=== PATIENT | male | born 1960 | race African-American/Black ===

== ENCOUNTER 2024-04-29 11:21 | Inpatient (IN) | payer MEDICARE, MEDICAID, SELFPAY ==
--- NOTE | ~2024-04-29 | CT_ITS ---
EXAMINATION: CT abdomen pelvis w con DATE: 04/29/2024 18:21 INDICATION: vomiting TECHNIQUE: Computed tomography (CT) of the abdomen and pelvis was performed with 100 mL Omnipaque-350 intravenous contrast. Automated exposure control and iterative reconstruction technique were employe d. The dose-length product was 394.66 mGy-cm. COMPARISON: None. FINDINGS: Exam limited by motion artifact and beam hardening from arm down positioning. Lower thorax: Mild cardiomegaly. Small bilateral pleural fluid collections. Mild septal thickening. D ependent atelectasis. Liver: Normal. Biliary/Gallbladder: Gallbladder is normal. No bile duct dilation. Pancreas: No mass or duct dilation. Spleen: Normal. Adrenals:No mass. Kidneys: No suspicious mass, obstructing stone, or hydronephrosis. GI tract: Mild distal esophageal and gastric wall edema. Mild gastric distention. Wall edema of the f irst portion of the duodenum. The second portion of the duodenum is dilated to 5.4 cm, with mucosal h yperemia. No large bowel dilation. Appendix is not confidently visualized. Mesentery/Peritoneum: Small volume ascites. No mass or free air. Retroperitoneum: No mass. Pelvis: Distended urinary bladder with mild wall thickening. Multiple ureteroceles. Marked prostatome shonna. Soft Tissues: Moderate body wall edema. Bones: No acute osseous finding. IMPRESSION: Small bilateral pleural effusions. Mild esophagitis/gastritis. Marked dilation of the second portion of the duodenum and mild gastric distention, presumably related to ileus from duodenitis. No obstructing mass or CT evidence of SMA syndrome. Mild ascites. Bladder wall thickening, may be secondary to chronic outlet obstruction or cystitis. Correlate with u rinalysis. Moderate body wall edema. Reviewed, dictated and finalized at location K. [place] [employer] SUPERVISOR IMPRESSION: Small bilateral pleural effusions. Mild esophagitis/gastritis. Marked dilation of the second portion of the duodenum and mild gastric distenti on, presumably related to ileus from duodenitis. No obstructing mass or CT evid ence of SMA syndrome. Mild ascites. Bladder wall thickening, may be secondary to chronic outlet obstruction or cyst itis. Correlate with urinalysis. Moderate body wall edema.
--- NOTE | ~2024-04-29 | CT_ITS ---
EXAMINATION: CT brain wo con DATE: 04/29/2024 18:21 INDICATION: unable to walk . TECHNIQUE: Computed tomography (CT) of the head was performed without intravenous contrast. The mA wa s adjusted according to patient size. Iterative reconstruction technique was employed. The dose-lengt h product was 681.00 mGy-cm. COMPARISON: None. FINDINGS: No acute intracranial hemorrhage or extra-axial fluid collection. No hydrocephalus, mass, or herniation. No acute ischemic infarct. Unremarkable dural venous sinus attenuation. No acute osseous abnormality. Small left maxillary air-fluid level, mild right maxillary mucosal thickening, the remaining aerated spaces are clear. Mild atrophy and chronic white matter change. Atherosclerotic intracranial calcification. IMPRESSION: No acute intracranial process. Reviewed, dictated and finalized at location K. ANICAL DEVELOPMENT ENGINEER
--- NOTE | ~2024-04-29 | XR_ITS ---
EXAMINATION: XR chest 1V portable DATE: 04/29/2024 13:43 INDICATION: Weakness TECHNIQUE: frontal view of the chest was obtained. COMPARISON: None FINDINGS: Mild elevation of the left hemidiaphragm. Mild right apical pleural-parenchymal scarring. No other ai rspace opacities, pulmonary edema, pleural effusion or pneumothorax. Cardiomediastinal silhouette is within normal limits for AP technique. IMPRESSION: 1. Mild elevation the left hemidiaphragm and mild right apical pleural-parenchymal scarring. Reviewed, dictated and finalized at location B. OR MAKER IMPRESSION: 1. Mild elevation the left hemidiaphragm and mild right apical pleural-parenchy mal scarring.
[2024-04-29 11:29] VITALS: BP 127/77; PULSE 79; RESP 16; TEMP 36.6; O2SAT 100
[2024-04-29 12:21] VITALS: BP 133/68; PULSE 58; RESP 16; TEMP 37.3; O2SAT 100
--- NOTE | 2024-04-29 12:50 | ED_ITS ---
HPI - Weakness General Chief complaint: Weakness Stated complaint: weakness Time Seen by Provider: 04/29/24 12:13 Source: EMS Mode of arrival: EMS History of Present Illness HPI Narrative: 63 years old male came to by ambulance from home patient's brother is telling me that patient was admitted to [facility] few days ago for urinary tract infection and was discharged 48 hours ago. On admission patient was able to walk at the time of discharge was not able to walk. Also been having nausea and frequent vomiting which been going for few days. Patient Baseline is awake and oriented to his name and age only otherwise disoriented. patient is brother and his sister saqib is telling me that patient used to walk bending forward because of back and neck problems and was told there is a possibility of neck surgery Review of Systems 2 Review of Systems: All systems reviewed & are unremarkable except as noted in HPI and below ROS unobtainable: Yes unobtainable due to mental status Exam 2 Narrative: General appearance: Well-developed, well-nourished, does not look in pain or distress patient looks mentally challenged, Skin: Normal color Head: Normocephalic, nontraumatic Eyes: Clear conjunctiva ENT: Oropharynx normal, ears normal, nose normal Neck: Supple, nontender Chest and respiratory: Airway patent, no respiratory distress, no accessory muscle use Heart: Regular rate/rhythm Abdomen: Soft, nontender, no organomegaly, quiet bowel sounds Vascular: Normal peripheral pulses, normal capillary refill. Musculoskeletal: deformity of the right upper extremity, dropped wrist and weakness of the hand muscles, chronic, generalized stiffness upper and lower extremities and trunk, scoliosis, stiffness and tilted neck to the left Neurologic: Alert and oriented his name and age only Course Vital Signs Vital signs: Vital Signs Temperature 36.6 C 04/29/24 11:29 Pulse Rate 79 04/29/24 11:29 Respiratory Rate 16 04/29/24 11:29 Blood Pressure 127/77 04/29/24 11:29 Pulse Oximetry 100 04/29/24 11:29 Oxygen Delivery Room Air 04/29/24 11:29 Temperature 36.6 C 04/29/24 17:54 Pulse Rate 90 04/29/24 17:54 Respiratory Rate 20 04/29/24 17:54 Blood Pressure 122/88 04/29/24 17:54 Pulse Oximetry 99 04/29/24 17:54 Oxygen Delivery Room Air 12/26/24 11:29 MDM - Weakness Lab Data 04/29/24 13:00 04/29/24 13:00 Labs: Lab Results 04/29/24 04/29/24 04/29/24 Range/Units 11:38 13:00 13:13 WBC 5.4 (4.5-10.0) K/mm3 RBC 4.06 L (4.6-6.20) M/mm3 Hgb 11.5 L (14.0-18.0) g/dL Hct 34.9 L (42.0-52.0) % MCV 86.0 (80-100) fl MCH 28.3 (26-34) pg MCHC 33.0 (32-36) g/dl RDW 13.5 (11.5-14.5) % Plt Count 150 (150-375) k/mm3 MPV 11.2 H (7.4-10.4) fl Immature Gran % (Auto) 0.7 H (0-0.5) % Neut % (Auto) 71.9 (45.5-73.1) % Lymph % (Auto) 15.8 L (18.3-44.2) % [place] % (Auto) 6.8 (2.6-8.5) % Eos % (Auto) 4.6 H (0-4.4) % Baso % (Auto) 0.2 (0.2-1.2) % Lymph # (Auto) 0.86 L (0.9-3.2) K/mm3 [place] # (Auto) 0.4 (0.1-0.6) K/mm3 Eos # (Auto) 0.3 (0-0.3) K/mm3 Baso # (Auto) 0.0 (0.0-0.1) K/mm3 Abs Immat Gran (auto) 0.04 H (0.00-0.031) K/mm3 Absolute Neuts (auto) 3.9 (1.3-6.7) K/mm3 Absolute Nucleated RBC 0.000 (0.0-0.012) K/mm3 Nucleated RBC % 0.0 (0.0-0.2) % Platelet Estimate Adequate (Adequate) Anisocytosis 1+ Neymar Cells 3+ Schistocytes None seen PT 18.7 H (11.1-14.7) Seconds INR 1.5 APTT 39.4 H (22.3-36.8) Seconds Sodium 136 L (137-145) mmol/L Potassium 3.6 (3.4-5.0) mmol/L Chloride 108 H (98-107) mmol/L Carbon Dioxide 26 (22-30) mmol/L Anion Gap 2 L (4-12) mmol/L BUN 15 (9-20) mg/dL Creatinine 1.00 (0.7-1.3) mg/dL Estim Creat Clear Calc 64 ml/min Estimated GFR > 60 (59 - ) Glucose 103 (65-110) mg/dL POC Capillary Glucose 102 (65-105) mg/dl Lactic Acid 1.0 (0.7-2.0) mmol/L Calcium 8.0 L (8.4-10.2) mg/dL Total Bilirubin 0.5 (0.2-1.3) mg/dL AST 33 (17-59) U/L ALT 38 (6-50) U/L Alkaline Phosphatase 58 (38-126) U/L Troponin I < 0.012 (0.000-0.034) ng/mL C-Reactive Protein 4.0 H (<1.0) mg/dL Total Protein 6.0 L (6.3-8.2) g/dL Albumin 2.9 L (3.5-5.1) g/dL Urine Color (Yellow) Urine Appearance (Clear) Urine pH (5.0-9.0) Ur Specific [place] (1.001-1.035) Urine Protein (Negative) mg/dL Urine Glucose (UA) (Negative) mg/dL Urine Ketones (Negative) mg/dL Ur Blood (Man) (Negative) Urine Nitrate (Negative) Urine Bilirubin (Negative) Urine Urobilinogen (<2.0) mg/dL Add Ur Microanalysis Leukocyte Esterase Rfl (Negative) DOROTHY/UL Urine RBC (0-2) /hpf Urine WBC (0-3) /hpf Ur Squamous Epith Cells (Few) /hpf Urine Bacteria /hpf Urine Casts Influenza A (RT-PCR) Negative (Negative) Influenza B (RT-PCR) Negative (Negative) RSV (RT-PCR) Negative (Negative) SARS-CoV-2 RNA (RT-PCR) Negative (Negative) 12/26/24 Range/Units 14:52 WBC (4.5-10.0) K/mm3 RBC (4.6-6.20) M/mm3 Hgb (14.0-18.0) g/dL Hct (42.0-52.0) % MCV (80-100) fl MCH (26-34) pg MCHC (32-36) g/dl RDW (11.5-14.5) % Plt Count (150-375) k/mm3 MPV (7.4-10.4) fl Immature Gran % (Auto) (0-0.5) % Neut % (Auto) (45.5-73.1) % Lymph % (Auto) (18.3-44.2) % [place] % (Auto) (2.6-8.5) % Eos % (Auto) (0-4.4) % Baso % (Auto) (0.2-1.2) % Lymph # (Auto) (0.9-3.2) K/mm3 [place] # (Auto) (0.1-0.6) K/mm3 Eos # (Auto) (0-0.3) K/mm3 Baso # (Auto) (0.0-0.1) K/mm3 Abs Immat Gran (auto) (0.00-0.031) K/mm3 Absolute Neuts (auto) (1.3-6.7) K/mm3 Absolute Nucleated RBC (0.0-0.012) K/mm3 Nucleated RBC % (0.0-0.2) % Platelet Estimate (Adequate) Anisocytosis Neymar Cells Schistocytes PT (11.1-14.7) Seconds INR APTT (22.3-36.8) Seconds Sodium (137-145) mmol/L Potassium (3.4-5.0) mmol/L Chloride (98-107) mmol/L Carbon Dioxide (22-30) mmol/L Anion Gap (4-12) mmol/L BUN (9-20) mg/dL Creatinine (0.7-1.3) mg/dL Estim Creat Clear Calc ml/min Estimated GFR (59 - ) Glucose (65-110) mg/dL POC Capillary Glucose (65-105) mg/dl Lactic Acid (0.7-2.0) mmol/L Calcium (8.4-10.2) mg/dL Total Bilirubin (0.2-1.3) mg/dL AST (17-59) U/L ALT (6-50) U/L Alkaline Phosphatase (38-126) U/L Troponin I (0.000-0.034) ng/mL C-Reactive Protein (<1.0) mg/dL Total Protein (6.3-8.2) g/dL Albumin (3.5-5.1) g/dL Urine Color Yellow (Yellow) Urine Appearance Clear (Clear) Urine pH 6.5 (5.0-9.0) Ur Specific [place] 1.020 (1.001-1.035) Urine Protein Trace (Negative) mg/dL Urine Glucose (UA) Negative (Negative) mg/dL Urine Ketones Negative (Negative) mg/dL Ur Blood (Man) 2+ H (Negative) Urine Nitrate Negative (Negative) Urine Bilirubin Negative (Negative) Urine Urobilinogen 1.0 (<2.0) mg/dL Add Ur Microanalysis Reviewed Leukocyte Esterase Rfl 1+ H (Negative) DOROTHY/UL Urine RBC 51-100 H (0-2) /hpf Urine WBC 0-5 (0-3) /hpf Ur Squamous Epith Cells None seen (Few) /hpf Urine Bacteria None seen /hpf Urine Casts 0-2 Influenza A (RT-PCR) (Negative) Influenza B (RT-PCR) (Negative) RSV (RT-PCR) (Negative) SARS-CoV-2 RNA (RT-PCR) (Negative) Imaging Data Radiologist's impression: Impressions Chest X-Ray 04/29/24 13:44 IMPRESSION: 1. Mild elevation the left hemidiaphragm and mild right apical pleural- parenchymal scarring. Critical Care Time Critical Care Time Critical Care Time: No Discharge Plan Discharge Patient Language: Greenlandic Follow-up/Referrals: UNKNOWN,DOCTOR [Primary Care Provider] -
--- NOTE | 2024-04-29 12:50 | ECG_ITS ---
Test Date: 2024-04-29 13:14:29 Measurements Intervals [place] Rate: 60 P: 28 NV: 130 QRS: -16 QRSD: 90 T: 31 QT: 416 QTc: 416 Interpretive Statements SINUS RHYTHM POOR R-WAVE PROGRESSION ABNORMAL ECG No previous ECG available for comparison Electronically Signed On 04-30-2024 16:50:50 LOADER HELPER by Ilya Ochoa M.D.
[2024-04-29 13:15] LABS: Basophils Percent Auto 0.2 % (0.2-1.2); Eosinophils Absolute Auto 0.3 K/mm3 (0-0.3); Eosinophils Percent Auto 4.6 % (0-4.4); Hematocrit 34.9 % (42.0-52.0); Hemoglobin 11.5 g/dL (14.0-18.0); Immature Granulocyte Absolute 0.04 K/mm3 (0.00-0.031); Immature Granulocyte Percent A 0.7 % (0-0.5); Lymphocytes Absolute Auto 0.86 K/mm3 (0.9-3.2); Lymphocytes Percent Auto 15.8 % (18.3-44.2); Mean Corpuscular Hemoglobin 28.3 pg (26-34); Mean Platelet Volume 11.2 fl (7.4-10.4); Monocytes Absolute Auto 0.4 K/mm3 (0.1-0.6); Monocytes Percent Auto 6.8 % (2.6-8.5); Neutrophils Absolute Auto 3.9 K/mm3 (1.3-6.7); Neutrophils Percent Auto 71.9 % (45.5-73.1); Platelet Count Result 150 k/mm3 (150-375); Red Blood Count 4.06 M/mm3 (4.6-6.20); Red Cell Distribution Width 13.5 % (11.5-14.5); White Blood Count 5.4 K/mm3 (4.5-10.0)
[2024-04-29 13:23] LABS: Alanine Aminotransferase 38 U/L (6-50); Albumin Level 2.9 g/dL (3.5-5.1); Alkaline Phosphatase 58 U/L (38-126); Anion Gap 2 mmol/L (4-12); Aspartate Amino Transferase 33 U/L (17-59); Bilirubin,Total 0.5 mg/dL (0.2-1.3); Blood Urea Nitrogen 15 mg/dL (9-20); Carbon Dioxide 26 mmol/L (22-30); Chloride 108 mmol/L (98-107); Estimated CRCL calculation 64 ml/min; Estimated Glomerular Filt Rate > 60; Glucose 103 mg/dL (65-110); Potassium 3.6 mmol/L (3.4-5.0); Sodium 136 mmol/L (137-145)
[2024-04-29 13:30] LABS: INR 1.5; Prothrombin Time 18.7 Seconds (11.1-14.7)
[2024-04-29 13:31] LABS: Partial Thromboplastin Time 39.4 Seconds (22.3-36.8); Troponin I < 0.012 ng/mL (0.000-0.034)
[2024-04-29 13:46] LABS: Influenza A QL RT-PCR Negative (Negative); Influenza B QL RT-PCR Negative (Negative); RSV RNA, RT-PCR Negative (Negative); SARS-CoV-2 RNA PCR Negative (Negative)
[2024-04-29 13:53] LABS: Platelet Estimate Adequate (Adequate)
[2024-04-29 13:54] LABS: Anisocytosis 1+; Burr Cells 3+; Schistocytes None Seen
[2024-04-29 14:24] LABS: Glucose Point of Care 102 mg/dl (65-105)
[2024-04-29 14:31] VITALS: BP 128/65; PULSE 66; RESP 13; TEMP 36.9; O2SAT 99
[2024-04-29 15:10] LABS: Add Urine Microscopic? YES; Appearance Urine Clear (Clear); Bacteria Urine None Seen /hpf; Bilirubin Urine Negative (Negative); Blood Urine 2+ (Negative); Color Urine Yellow (Yellow); Glucose Urine UA Negative (Negative); Ketones Urine Negative (Negative); Leukocyte Esterase Ur 1+ LEU/UL (Negative); Need Manual Microscopic Reviewed; Nitrate Urine Negative (Negative); Non Pathogenic Casts 0-2; Protein Urine Trace mg/dL (Negative); RBC Urine 51-100 /hpf (0-2); Squamous Epithelial Cell Urine None Seen /hpf (Few); WBC Urine 0-5 /hpf (0-3); pH Urine 6.5 (5.0-9.0)
[2024-04-29 17:54] VITALS: BP 122/88; PULSE 90; RESP 20; TEMP 36.6; O2SAT 99
[2024-04-29 19:47] VITALS: BP 130/73; PULSE 62; RESP 14; TEMP 36.6; O2SAT 100
--- NOTE | 2024-04-29 21:36 | PM.IMHP ---
H&P: HPI History of Present Illness Date/Time: 04/29/24 21:36 Chief Complaint: vomiting Narrative: Pt brought in by his brother for 3 days of vomiting Pt was recently discharged from [facility] on adis with UTI. Pt was taking oral abx at home was having some diarrhea and stomach upset. UA today is positive Pt has history of schizophrenia but his moo is stable as per his brother ct head is negative, cxr is nl ct abdo and pelvis shows -Small bilateral pleural effusions. Mild esophagitis/gastritis. Marked dilation of the second portion of the duodenum and mild gastric distention, presumably related to ileus from duodenitis. No obstructing mass or CT evidence of SMA syndrome. Mild ascites. Bladder wall thickening, may be secondary to chronic outlet obstruction or cystitis. Correlate with urinalysis. Moderate body wall edema. Review of Systems Review of Systems: Pt with severe vomiting some diarrhea all other 12 systems are negative apart from those in HPI Meds Home Medications and Allergies Allergies Allergy/AdvReac Type Severity Reaction Status Date / Time No Known Allergies Allergy Verified 04/29/24 21:37 Vital Signs Vital Signs - 24 hr 04/29/24 11:29 04/29/24 12:21 04/29/24 14:31 Temperature 36.6 C 37.3 C 36.9 C Pulse Rate 79 58 L 66 Respiratory Rate 16 16 13 Blood Pressure 127/77 133/68 128/65 Pulse Oximetry 100 100 99 Oxygen Delivery Room Air 04/29/24 17:54 04/29/24 19:47 Temperature 36.6 C 36.6 C Pulse Rate 90 62 Respiratory Rate 20 14 Blood Pressure 122/88 130/73 Pulse Oximetry 99 100 Oxygen Delivery Exam Const: General: in distress and other (tired weak dry appearing ) Nutritional Appearance: thin Orientation/consciousness: oriented to person Other: slow to answer questions HENMT: Head: normal to inspection Resp: Effort & Inspection: no respiratory distress Auscultation: no rhonchi and no wheezes Cardio: Rate: regular rate Rhythm: regular rhythm GI: Inspection: normal to inspection GI Palp: No abdominal tenderness, No Guarding due to palpation present (GI) and No Hepatomegaly present Auscultation: normal bowel sounds Neuro: General: oriented to person Psych: Other: euthymic mood and speech H&P: Results Labs Labs: Short CBC 04/29/24 Range/Units 13:00 WBC 5.4 (4.5-10.0) K/mm3 Hgb 11.5 L (14.0-18.0) g/dL Hct 34.9 L (42.0-52.0) % Plt Count 150 (150-375) k/mm3 BMP 04/29/24 13:00 Sodium 136 L Potassium 3.6 Chloride 108 H Carbon Dioxide 26 BUN 15 Creatinine 1.00 Glucose 103 Calcium 8.0 L Cardiac Enzymes 04/29/24 Range/Units 13:00 Troponin I < 0.012 (0.000-0.034) ng/mL Liver Function 04/29/24 Range/Units 13:00 Total Bilirubin 0.5 (0.2-1.3) mg/dL AST 33 (17-59) U/L ALT 38 (6-50) U/L Alkaline Phosphatase 58 (38-126) U/L Albumin 2.9 L (3.5-5.1) g/dL Urine 04/29/24 Range/Units 14:52 Urine Color Yellow (Yellow) Urine Appearance Clear (Clear) Urine pH 6.5 (5.0-9.0) Ur Specific [place] 1.020 (1.001-1.035) Urine Protein Trace (Negative) mg/dL Urine Glucose (UA) Negative (Negative) mg/dL Assessment and Plan Assessment and plan (1) UTI (urinary tract infection): Code(s): N39.0 - Urinary tract infection, site not specified Status: Acute Assessment and Plan: UA is positive await UC and bc order iv rocephin and fluids (2) Dehydration: Code(s): E86.0 - Dehydration Status: Acute Assessment and Plan: Secondary to intractable vomiting Add iv fluids watch bmp follow UC (3) Schizophrenia: Code(s): F20.9 - Schizophrenia, unspecified Status: Acute Assessment and Plan: euthymic mood pt currently not on any psych meds (4) Gastritis: Code(s): K29.70 - Gastritis, unspecified, without bleeding Status: Acute Assessment and Plan: Add iv protonix and iv zofran ct shows gastritis and esophagitis start clear diet advance as tolerated if pt having diarrhea can send for stool culture and cdiff testing Plan DVT prop: scd code: full code Hospitalist MIPS Advance Care Plan I have confirmed that the patient's Advanced Care Plan is present, code status is documented, or surrogate decision maker is listed in patient medical record.: Yes Medication Reconciliation The patient is not eligible for med reconciliation; the patient is in a emergent medical situation where delaying treatment would jeopardize the patients health.: Yes
[2024-04-29] MEDS: SODIUM CHLORIDE 0.9% IV 1,000 ML 70 ML IV CONT (22:01)
[2024-04-29 22:16] VITALS: BMI 20.2
[2024-04-29 22:17] VITALS: BP 134/62; PULSE 58; RESP 16; TEMP 36.9; O2SAT 99
--- NOTE | 2024-04-29 22:30 | ADMGEN ---
This patient, Ayanna Valdez, was admitted to Medical Room 347-. Patient/family oriented to hospital policies and general routines including ID bracelet, bed and alarms, visiting hours, pain management, procedures, bathroom and other care routines, personal items, smoking policy, room service/diet, and visiting hours. Information on how to activate the Rapid Response Team has been discussed. Patient/Family are encouraged to report perceived risks to care and to ask questions if they do not understand what they are told or what they should do.
[2024-04-30] MEDS: ONDANSETRON INJ 4 MG/2 ML VIAL IV PUSH (04:52)
[2024-04-30 05:06] VITALS: BP 150/67; PULSE 55; RESP 18; TEMP 36.6; O2SAT 98
[2024-04-30 07:05] LABS: Hematocrit 29.8 % (42.0-52.0); Hemoglobin 9.6 g/dL (14.0-18.0); Immature Platelet Fraction Pct 3.5 % (0.9-11.2); Mean Corpuscular HGB Conc 32.2 g/dl (32-36); Mean Corpuscular Hemoglobin 27.8 pg (26-34); Mean Corpuscular Volume 86.4 fl (80-100); Mean Platelet Volume 11.2 fl (7.4-10.4); Platelet Count Result 131 k/mm3 (150-375); Red Blood Count 3.45 M/mm3 (4.6-6.20); Red Cell Distribution Width 13.4 % (11.5-14.5); White Blood Count 6.3 K/mm3 (4.5-10.0)
[2024-04-30 07:13] LABS: Anion Gap 0 mmol/L (4-12); Blood Urea Nitrogen 12 mg/dL (9-20); Calcium 7.6 mg/dL (8.4-10.2); Carbon Dioxide 24 mmol/L (22-30); Chloride 109 mmol/L (98-107); Estimated CRCL calculation 68 ml/min; Estimated Glomerular Filt Rate > 60; Glucose 91 mg/dL (65-110); Potassium 3.6 mmol/L (3.4-5.0); Sodium 133 mmol/L (137-145)
[2024-04-30] MEDS: PANTOPRAZOLE SODIUM IV 40 MG VIAL IV PUSH (08:26)
[2024-04-30] MEDS: SODIUM CHLORIDE 0.9% IV 1,000 ML 70 ML IV CONT ×2 (12:29→20:13)
--- NOTE | 2024-04-30 12:36 | P.PNIM_ITS ---
Progress Note: A&P Assessment and Plan (1) UTI (urinary tract infection): Code(s): N39.0 - Urinary tract infection, site not specified Status: Acute Assessment and Plan: 04/30/24: - Urine culture pending. Labwork stable. Recent discharge with UTI from [facility], Have spoken to nursing and requested records. 04/29/24: UA is positive await UC and order iv rocephin and fluids (2) Dehydration: Code(s): E86.0 - Dehydration Status: Acute Assessment and Plan: 04/30/24: Improved labs, fluids at 70ml/hr to continue. 04/29/24: Secondary to intractable vomiting Add iv fluids watch bmp follow UC (3) Schizophrenia: Code(s): F20.9 - Schizophrenia, unspecified Status: Acute Assessment and Plan: 04/30/24: Stable mood, pleasant and conversant. Resumed home medications (benztropine, remeron, risperdal, sertraline). 04/29/24: euthymic mood pt currently not on any psych meds (4) Gastritis: Code(s): K29.70 - Gastritis, unspecified, without bleeding Status: Acute Assessment and Plan: 04/30/24: No abdominal pain, distention noted on imaging - one episode vomiting last night and none since. If vomiting resumes, plan to reimage. Cont. protonix, zofran. QT 416, if needing zofran frequently, remeasure and modify therapy. 04/29/24: Add iv protonix and iv zofran ct shows gastritis and esophagitis start clear diet advance as tolerated if pt having diarrhea can send for stool culture and cdiff testing (5) Hypertension: Code(s): I10 - Essential (primary) hypertension Status: Acute Assessment and Plan: 04/30/24: BP 150/67 this am, resuming norvasc, losartan, propranolol. Plan Ayanna Valdez is a 63 year old male presenting with 3 days of vomiting from home after recent discharge from [facility] with UTI. His urinalysis does suggest current infection and he is on ceftriaxone with pending culture. There is distention of the duodenum/stomach without specific findings of obstruction. He is tolerating liquid diet without abdominal pain on examination. Time Spent With Patient Time with patient: 25 - 35 minutes Subjective Date/time seen: 04/30/24 12:36 Interval history: Ayanna states he feels ok today. He denies any abdominal pain. He states has dysuria. Review of Systems Review of Systems: All systems reviewed & are unremarkable except as noted in HPI and below Exam Narrative: GENERAL APPEARANCE: Appears to be in no acute distress. HEAD: normocephalic atraumatic EYES: Vision grossly intact. ENT: Hearing grossly intact, no nasal discharge NECK: Neck supple, trachea midline. CARDIAC: Normal S1/S2. Rhythm is regular. No murmurs, rubs, or gallops. No cyanosis or pallor. Extremities are warm and well perfused. LUNGS: Clear to auscultation without rales, rhonchi, wheezing or diminished breath sounds. Respirations even and unlabored. ABDOMEN: BS positive across 4 quadrants. Mild tympany to percussion. Soft. No guarding or rebound. PERIPHERAL VASCULAR: Peripheral pulses palpable. Normal perfusion, cap refill <2 seconds. NEURO: Follows commands. PSYCH: Stable, no paranoia or delusional thinking. Objective Data Vital Signs Vital Signs: Vital Signs - 24 hr 04/29/24 14:31 04/29/24 17:54 04/29/24 19:47 Temperature 98.4 F 97.9 F 97.9 F Pulse Rate 66 90 62 Respiratory Rate 13 20 14 Blood Pressure 128/65 122/88 130/73 Pulse Oximetry 99 99 100 04/29/24 22:17 04/30/24 05:06 Temperature 98.5 F 98 F Pulse Rate 58 L 55 L Respiratory Rate 16 18 Blood Pressure 134/62 150/67 H Pulse Oximetry 99 98 Intake/Output Intake/Output: Intake & Output 04/27/24 04/28/24 04/29/24 04/30/24 23:59 23:59 23:59 23:59 Intake Total 1700 Output Total 500 Balance 1200 Meds/Results Medications: Active Medications Generic Name Dose Route Start Last Admin Trade Name Freq PRN Reason Stop Dose Admin Acetaminophen 650 mg 04/29/24 20:17 Acetaminophen 325 Mg Tablet PO Q4H PRN Mild Pain (1-3) or Fever Ceftriaxone Sodium 1 gm in 50 mls @ 100 mls/hr 04/29/24 21:00 04/29/24 22:01 Rocephin 1 Gm/Ns 50 Ml IVPB 100 mls/hr Q24H LORNA Administration Sodium Chloride 1,000 mls @ 70 mls/hr 04/29/24 21:50 04/30/24 12:29 Normal Saline Iv IV CONT 70 mls/hr .[id number] LORNA Administration Ondansetron HCl 4 mg 04/29/24 20:17 04/30/24 04:52 Ondansetron Inj 4 Mg/2 Ml Vial IV PUSH 4 mg Q4H PRN Administration Nausea Pantoprazole Sodium 40 mg 04/30/24 09:00 04/30/24 08:26 Pantoprazole Sodium Iv 40 Mg Vial IV PUSH 40 mg QAM LORNA Administration Radiology Results: ITS Impressions Chest X-Ray 04/29/24 13:44 IMPRESSION: 1. Mild elevation the left hemidiaphragm and mild right apical pleural- parenchymal scarring. Head CT 04/29/24 18:23 IMPRESSION: No acute intracranial process. Abdomen/Pelvis CT 04/29/24 18:25 IMPRESSION: Small bilateral pleural effusions. Mild esophagitis/gastritis. Marked dilation of the second portion of the duodenum and mild gastric distention, presumably related to ileus from duodenitis. No obstructing mass or CT evidence of SMA syndrome. Mild ascites. Bladder wall thickening, may be secondary to chronic outlet obstruction or cystitis. Correlate with urinalysis. Moderate body wall edema. Labs Labs: Laboratory Results - last 24 hr 04/29/24 04/29/24 04/29/24 11:38 13:00 13:13 WBC 5.4 RBC 4.06 L Hgb 11.5 L Hct 34.9 L MCV 86.0 MCH 28.3 MCHC 33.0 RDW 13.5 Plt Count 150 MPV 11.2 H Immature Gran % (Auto) 0.7 H Neut % (Auto) 71.9 Lymph % (Auto) 15.8 L [place] % (Auto) 6.8 Eos % (Auto) 4.6 H Baso % (Auto) 0.2 Lymph # (Auto) 0.86 L [place] # (Auto) 0.4 Eos # (Auto) 0.3 Baso # (Auto) 0.0 Abs Immat Gran (auto) 0.04 H Absolute Neuts (auto) 3.9 Absolute Nucleated RBC 0.000 Nucleated RBC % 0.0 Platelet Estimate Adequate % Immature Plt Fraction Anisocytosis 1+ [place] Cells 3+ Schistocytes None seen PT 18.7 H INR 1.5 APTT 39.4 H Sodium 136 L Potassium 3.6 Chloride 108 H Carbon Dioxide 26 Anion Gap 2 L BUN 15 Creatinine 1.00 Estim Creat Clear Calc 64 Estimated GFR > 60 Glucose 103 POC Capillary Glucose 102 Lactic Acid 1.0 Calcium 8.0 L Total Bilirubin 0.5 AST 33 ALT 38 Alkaline Phosphatase 58 Troponin I < 0.012 C-Reactive Protein 4.0 H Total Protein 6.0 L Albumin 2.9 L Urine Color Urine Appearance Urine pH Ur Specific [place] Urine Protein Urine Glucose (UA) Urine Ketones Ur Blood (Man) Urine Nitrate Urine Bilirubin Urine Urobilinogen Add Ur Microanalysis Leukocyte Esterase Rfl Urine RBC Urine WBC Ur Squamous Epith Cells Urine Bacteria Urine Casts Influenza A (RT-PCR) Negative Influenza B (RT-PCR) Negative RSV (RT-PCR) Negative SARS-CoV-2 RNA (RT-PCR) Negative 04/29/24 04/30/24 14:52 06:40 WBC 6.3 RBC 3.45 L Hgb 9.6 L Hct 29.8 L MCV 86.4 MCH 27.8 MCHC 32.2 RDW 13.4 Plt Count 131 L MPV 11.2 H Immature Gran % (Auto) Neut % (Auto) Lymph % (Auto) [place] % (Auto) Eos % (Auto) Baso % (Auto) Lymph # (Auto) [place] # (Auto) Eos # (Auto) Baso # (Auto) Abs Immat Gran (auto) Absolute Neuts (auto) Absolute Nucleated RBC Nucleated RBC % Platelet Estimate % Immature Plt Fraction 3.5 Anisocytosis [place] Cells Schistocytes PT INR APTT Sodium 133 L Potassium 3.6 Chloride 109 H Carbon Dioxide 24 Anion Gap 0 L BUN 12 Creatinine 0.90 Estim Creat Clear Calc 68 Estimated GFR > 60 Glucose 91 POC Capillary Glucose Lactic Acid Calcium 7.6 L Total Bilirubin AST ALT Alkaline Phosphatase Troponin I C-Reactive Protein Total Protein Albumin Urine Color Yellow Urine Appearance Clear Urine pH 6.5 Ur Specific [place] 1.020 Urine Protein Trace Urine Glucose (UA) Negative Urine Ketones Negative Ur Blood (Man) 2+ H Urine Nitrate Negative Urine Bilirubin Negative Urine Urobilinogen 1.0 Add Ur Microanalysis Reviewed Leukocyte Esterase Rfl 1+ H Urine RBC 51-100 H Urine WBC 0-5 Ur Squamous Epith Cells None seen Urine Bacteria None seen Urine Casts 0-2 Influenza A (RT-PCR) Influenza B (RT-PCR) RSV (RT-PCR) SARS-CoV-2 RNA (RT-PCR) Quality VTE Prophylaxis VTE prophylaxis: mechanical ordered and pharmacologic ordered (on xarelto) Hospitalist MIPS Advance Care Plan I have confirmed that the patient's Advanced Care Plan is present, code status is documented, or surrogate decision maker is listed in patient medical record.: Yes Medication Reconciliation I have utilized all available resources to obtain, update and review the patients current medications (includes all prescriptions, OTC, herbals, cannabis, and nutritional supplements).: Yes
[2024-04-30] MEDS: BACLOFEN 10 MG TABLET PO ×2 (13:23→20:12)
[2024-04-30] MEDS: LOSARTAN POTASSIUM 50 MG TABLET PO (13:23)
[2024-04-30] MEDS: SERTRALINE HCL 50 MG TABLET PO (13:23)
[2024-04-30] MEDS: amLODIPine BESYLATE 10 MG TABLET PO (13:23)
[2024-04-30] MEDS: LORATADINE 10 MG TABLET PO (13:26)
[2024-04-30 13:27] VITALS: PULSE 60
[2024-04-30] MEDS: PROPRANOLOL HCL 60 MG CAPSULE CR PO (13:27)
[2024-04-30 14:00] VITALS: BP 133/57; PULSE 62; RESP 18; TEMP 36.8; O2SAT 99
[2024-04-30] MEDS: RIVAROXABAN 20 MG TABLET PO (16:51)
[2024-04-30] MEDS: BENZTROPINE MESYLATE 1 MG TABLET PO (16:56)
[2024-04-30 19:46] VITALS: BP 120/65; PULSE 60; RESP 18; TEMP 36.5; O2SAT 100
[2024-04-30] MEDS: risperiDONE 1 MG TABLET 2 MG PO (20:12)
[2024-04-30] MEDS: MIRTAZAPINE 30 MG TABLET PO (20:12)
[2024-04-30] MEDS: traZODone HCL 50 MG TABLET PO (20:12)
[2024-05-01 05:45] VITALS: BP 149/63; PULSE 57; RESP 16; TEMP 36.6; O2SAT 97
[2024-05-01 05:56] LABS: Hemoglobin 10.7 g/dL (14.0-18.0); Mean Corpuscular HGB Conc 32.4 g/dl (32-36); Mean Corpuscular Volume 86.4 fl (80-100); Mean Platelet Volume 10.8 fl (7.4-10.4); Platelet Count Result 152 k/mm3 (150-375); Red Blood Count 3.82 M/mm3 (4.6-6.20); Red Cell Distribution Width 13.6 % (11.5-14.5); White Blood Count 6.6 K/mm3 (4.5-10.0)
[2024-05-01 06:07] LABS: Alanine Aminotransferase 27 U/L (6-50); Albumin Level 2.5 g/dL (3.5-5.1); Alkaline Phosphatase 50 U/L (38-126); Anion Gap -1 mmol/L (4-12); Aspartate Amino Transferase 22 U/L (17-59); Bilirubin,Total 0.4 mg/dL (0.2-1.3); Blood Urea Nitrogen 10 mg/dL (9-20); Calcium 7.6 mg/dL (8.4-10.2); Carbon Dioxide 25 mmol/L (22-30); Chloride 113 mmol/L (98-107); Estimated CRCL calculation 75 ml/min; Estimated Glomerular Filt Rate > 60; Glucose 86 mg/dL (65-110); Potassium 3.7 mmol/L (3.4-5.0); Sodium 137 mmol/L (137-145)
[2024-05-01 08:02] VITALS: O2SAT 98
[2024-05-01 09:01] VITALS: PULSE 57
[2024-05-01] MEDS: amLODIPine BESYLATE 10 MG TABLET PO (09:01)
[2024-05-01] MEDS: LOSARTAN POTASSIUM 50 MG TABLET PO (09:01)
[2024-05-01] MEDS: LORATADINE 10 MG TABLET PO (09:01)
[2024-05-01] MEDS: BACLOFEN 10 MG TABLET PO ×2 (09:01→20:23)
[2024-05-01] MEDS: PROPRANOLOL HCL 60 MG CAPSULE CR PO (09:01)
[2024-05-01] MEDS: SERTRALINE HCL 50 MG TABLET PO (09:01)
[2024-05-01] MEDS: PANTOPRAZOLE SODIUM IV 40 MG VIAL IV PUSH (09:02)
[2024-05-01] MEDS: BENZTROPINE MESYLATE 1 MG TABLET PO ×2 (09:08→17:37)
--- NOTE | 2024-05-01 10:13 | P.PNIM_ITS ---
Progress Note: A&P Assessment and Plan (1) Hypertension: Code(s): I10 - Essential (primary) hypertension Status: Acute (2) Gastritis: Code(s): K29.70 - Gastritis, unspecified, without bleeding Status: Acute (3) Schizophrenia: Code(s): F20.9 - Schizophrenia, unspecified Status: Acute (4) Dehydration: Code(s): E86.0 - Dehydration Status: Acute (5) UTI (urinary tract infection): Code(s): N39.0 - Urinary tract infection, site not specified Status: Acute Plan (1) UTI (urinary tract infection): Code(s): N39.0 - Urinary tract infection, site not specified Status: Acute Assessment and Plan: 05/01/24: UA is positive await UC and bc on iv rocephin and fluids Urine culture no growth Labwork stable. Recent discharge with UTI from [facility], requested records. (2) Dehydration: Code(s): E86.0 - Dehydration Status: Acute Assessment and Plan: Improved labs, fluids at 70ml/hr to continue. (3) Schizophrenia: Code(s): F20.9 - Schizophrenia, unspecified Status: Acute Assessment and Plan: 04/30/24: Stable mood, pleasant and conversant. Resumed home medications (benztropine, remeron, risperdal, sertraline). 04/29/24: euthymic mood pt currently not on any psych meds (4) Gastritis: Code(s): K29.70 - Gastritis, unspecified, without bleeding Status: Acute Assessment and Plan: 04/30/24: No abdominal pain, distention noted on imaging - one episode vomiting last night and none since. If vomiting resumes, plan to reimage. Cont. protonix, zofran. QT 416, if needing zofran frequently, remeasure and modify th erapy. 04/29/24: Add iv protonix and iv zofran ct shows gastritis and esophagitis start clear diet advance as tolerated if pt having diarrhea can send for stool culture and cdiff testing (5) Hypertension: Code(s): I10 - Essential (primary) hypertension Status: Acute Assessment and Plan: 04/30/24: BP 150/67 this am, resuming norvasc, losartan, propranolol. Plan Discharge patient tomorrow if patient appetite will continue improving and tolerates diet Subjective Date/time seen: 05/01/24 10:13 Interval history: Patient was sitting in a chair eating lunch, no obvious distress. Appetite is improving, Patient has general weakness, and he denies any abdominal pain. He states has dysuria. Exam Narrative: GENERAL APPEARANCE: Appears to be in no acute distress. HEAD: normocephalic atraumatic EYES: Vision grossly intact. ENT: Hearing grossly intact, no nasal discharge NECK: Neck supple, trachea midline. CARDIAC: Normal S1/S2. Rhythm is regular. No murmurs, rubs, or gallops. No cyanosis or pallor. Extremities are warm and well perfused. LUNGS: Clear to auscultation without rales, rhonchi, wheezing or diminished breath sounds. Respirations even and unlabored. ABDOMEN: BS positive across 4 quadrants. Mild tympany to percussion. Soft. No guarding or rebound. PERIPHERAL VASCULAR: Peripheral pulses palpable. Normal perfusion, cap refill <2 seconds. NEURO: Follows commands. PSYCH: Stable, no paranoia or delusional thinking. Objective Data Vital Signs Vital Signs: Vital Signs - 24 hr 04/30/24 13:27 04/30/24 14:00 04/30/24 19:46 Temperature 98.2 F 97.7 F Pulse Rate 60 62 60 Respiratory Rate 18 18 Blood Pressure 133/57 L 120/65 Pulse Oximetry 99 100 Oxygen Delivery Fraction of Inspired Oxygen 05/01/24 05:45 05/01/24 08:00 05/01/24 08:02 Temperature 97.8 F Pulse Rate 57 L Respiratory Rate 16 Blood Pressure 149/63 H Pulse Oximetry 97 98 Oxygen Delivery Room Air Room Air Fraction of Inspired Oxygen 21 05/01/24 09:01 Temperature Pulse Rate 57 L Respiratory Rate Blood Pressure Pulse Oximetry Oxygen Delivery Fraction of Inspired Oxygen Intake/Output Intake/Output: Intake & Output 04/28/24 04/29/24 04/30/24 05/01/24 23:59 23:59 23:59 23:59 Intake Total 50 3371.3 240 Output Total 1100 800 Balance 50 4071.3 -560 Meds/Results Medications: Active Medications Generic Name Dose Route Start Last Admin Trade Name Freq PRN Reason Stop Dose Admin Acetaminophen 650 mg 04/29/24 20:17 Acetaminophen 325 Mg Tablet PO Q4H PRN Mild Pain (1-3) or Fever Amlodipine Besylate 10 mg 04/30/24 12:45 05/01/24 09:01 Amlodipine Besylate 10 Mg Tablet PO 10 mg DAILY LORNA Administration Baclofen 10 mg 04/30/24 12:40 05/01/24 09:01 Baclofen 10 Mg Tablet PO 10 mg Q12HR LORNA Administration Benztropine Mesylate 1 mg 04/30/24 17:00 05/01/24 09:08 Benztropine Mesylate 1 Mg Tablet PO 1 mg BID LORNA Administration Ceftriaxone Sodium 1 gm in 50 mls @ 100 mls/hr 04/29/24 21:00 04/30/24 21:00 Rocephin 1 Gm/Ns 50 Ml IVPB Infused Q24H LORNA Infusion Sodium Chloride 1,000 mls @ 70 mls/hr 04/29/24 21:50 04/30/24 20:13 Normal Saline Iv IV CONT 70 mls/hr .[id number] LORNA Administration Loratadine 10 mg 04/30/24 09:00 05/01/24 09:01 Loratadine 10 Mg Tablet PO 10 mg Q24H LORNA Administration Losartan Potassium 50 mg 04/30/24 12:45 05/01/24 09:01 Losartan Potassium 50 Mg Tablet PO 50 mg DAILY LORNA Administration Mirtazapine 30 mg 04/30/24 21:00 04/30/24 20:12 Mirtazapine 30 Mg Tablet PO 30 mg HS LORNA Administration Ondansetron HCl 4 mg 04/29/24 20:17 04/30/24 04:52 Ondansetron Inj 4 Mg/2 Ml Vial IV PUSH 4 mg Q4H PRN Administration Nausea Pantoprazole Sodium 40 mg 04/30/24 09:00 05/01/24 09:02 Pantoprazole Sodium Iv 40 Mg Vial IV PUSH 40 mg QAM LORNA Administration Propranolol HCl 60 mg 04/30/24 09:00 05/01/24 09:01 Propranolol Hcl 60 Mg Capsule Cr PO 60 mg Q24H LORNA Administration Risperidone 2 mg 04/30/24 21:00 04/30/24 20:12 Risperidone 1 Mg Tablet PO 05/30/24 20:59 2 mg HS LORNA Administration Rivaroxaban 20 mg 04/30/24 17:00 04/30/24 16:51 Rivaroxaban 20 Mg Tablet PO 20 mg Q24H LORNA Administration Sertraline HCl 50 mg 04/30/24 12:45 05/01/24 09:01 Sertraline Hcl 50 Mg Tablet PO 50 mg DAILY LORNA Administration Trazodone HCl 50 mg 04/30/24 21:00 04/30/24 20:12 Trazodone Hcl 50 Mg Tablet PO 50 mg HS LORNA Administration Radiology Results: ITS Impressions Chest X-Ray 04/29/24 13:44 IMPRESSION: 1. Mild elevation the left hemidiaphragm and mild right apical pleural- parenchymal scarring. Head CT 04/29/24 18:23 IMPRESSION: No acute intracranial process. Abdomen/Pelvis CT 04/29/24 18:25 IMPRESSION: Small bilateral pleural effusions. Mild esophagitis/gastritis. Marked dilation of the second portion of the duodenum and mild gastric distention, presumably related to ileus from duodenitis. No obstructing mass or CT evidence of SMA syndrome. Mild ascites. Bladder wall thickening, may be secondary to chronic outlet obstruction or cystitis. Correlate with urinalysis. Moderate body wall edema. Labs Labs: Laboratory Results - last 24 hr 05/01/24 05:37 WBC 6.6 RBC 3.82 L Hgb 10.7 L Hct 33.0 L MCV 86.4 MCH 28.0 MCHC 32.4 RDW 13.6 Plt Count 152 MPV 10.8 H Sodium 137 Potassium 3.7 Chloride 113 H Carbon Dioxide 25 Anion Gap -1 L BUN 10 Creatinine 0.80 Estim Creat Clear Calc 75 Estimated GFR > 60 Glucose 86 Calcium 7.6 L Magnesium 2.0 Total Bilirubin 0.4 AST 22 ALT 27 Alkaline Phosphatase 50 Total Protein 6.0 L Albumin 2.5 L
[2024-05-01 13:56] VITALS: BP 102/57; PULSE 64; RESP 17; TEMP 36.5; O2SAT 100
[2024-05-01] MEDS: SODIUM CHLORIDE 0.9% IV 1,000 ML 70 ML IV CONT (15:56)
[2024-05-01] MEDS: RIVAROXABAN 20 MG TABLET PO (17:37)
[2024-05-01] MEDS: MIRTAZAPINE 30 MG TABLET PO (20:23)
[2024-05-01] MEDS: risperiDONE 1 MG TABLET 2 MG PO (20:23)
[2024-05-01] MEDS: traZODone HCL 50 MG TABLET PO (20:23)
[2024-05-01 22:00] VITALS: BP 128/63; PULSE 56; RESP 18; TEMP 36.6; O2SAT 100
[2024-05-02] MEDS: SODIUM CHLORIDE 0.9% IV 1,000 ML 70 ML IV CONT (05:45)
[2024-05-02 06:00] VITALS: BP 128/63; PULSE 56; RESP 18; TEMP 36.6; O2SAT 100
[2024-05-02 08:37] VITALS: PULSE 56
[2024-05-02] MEDS: BACLOFEN 10 MG TABLET PO ×2 (08:37→21:08)
[2024-05-02] MEDS: SERTRALINE HCL 50 MG TABLET PO (08:37)
[2024-05-02] MEDS: PROPRANOLOL HCL 60 MG CAPSULE CR PO (08:37)
[2024-05-02] MEDS: LORATADINE 10 MG TABLET PO (08:38)
[2024-05-02] MEDS: BENZTROPINE MESYLATE 1 MG TABLET PO ×2 (08:38→16:59)
[2024-05-02] MEDS: amLODIPine BESYLATE 10 MG TABLET PO (08:38)
[2024-05-02] MEDS: LOSARTAN POTASSIUM 50 MG TABLET PO (08:39)
[2024-05-02] MEDS: PANTOPRAZOLE SODIUM IV 40 MG VIAL IV PUSH (08:39)
--- NOTE | 2024-05-02 11:44 | PM.IMPN ---
Progress Note: A&P Assessment and Plan (1) Hypertension: Code(s): I10 - Essential (primary) hypertension Status: Acute (2) Gastritis: Code(s): K29.70 - Gastritis, unspecified, without bleeding Status: Acute (3) Schizophrenia: Code(s): F20.9 - Schizophrenia, unspecified Status: Acute (4) Dehydration: Code(s): E86.0 - Dehydration Status: Acute (5) UTI (urinary tract infection): Code(s): N39.0 - Urinary tract infection, site not specified Status: Acute Plan (1) UTI (urinary tract infection): Code(s): N39.0 - Urinary tract infection, site not specified Status: Acute Assessment and Plan: 05/01/24: UA is positive await UC and bc on iv rocephin and fluids Urine culture no growth Labwork stable. Recent discharge with UTI from [facility], requested records. 05/02 UC is negative here (2) Dehydration: Code(s): E86.0 - Dehydration Status: Acute Assessment and Plan: Improved labs, fluids at 70ml/hr to continue. dc fluids pt eating and drinking more here creat is nl now after iv fluids (3) Schizophrenia: Code(s): F20.9 - Schizophrenia, unspecified Status: Acute Assessment and Plan: 04/30/24: Stable mood, pleasant and conversant. Resumed home medications (benztropine, remeron, risperdal, sertraline). 04/29/24: euthymic mood pt currently not on any psych meds (4) Gastritis: Code(s): K29.70 - Gastritis, unspecified, without bleeding Status: Acute Assessment and Plan: 04/30/24: No abdominal pain, distention noted on imaging - one episode vomiting last night and none since. If vomiting resumes, plan to reimage. Cont. protonix, zofran. QT 416, if needing zofran frequently, remeasure and modify therapy. 04/29/24: iv protonix and iv zofran ct shows gastritis and esophagitis start clear diet advance as tolerated 05/02 if pt having diarrhea can send for stool culture and cdiff testing diarrhea settled follow stool culture cdiff not test advance diet transition iv protonix and zofran to oral (5) Hypertension: Code(s): I10 - Essential (primary) hypertension Status: Acute Assessment and Plan: 04/30/24: BP 150/67 this am, resuming norvasc, losartan, propranolol. 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 CARDIAC: Normal S1/S2. Rhythm is regular. No murmurs, rubs, or gallops. No cyanosis or pallor. Extremities are warm and well perfused. LUNGS: Clear to auscultation without rales, rhonchi, wheezing or diminished breath sounds. Respirations even and unlabored. ABDOMEN: BS positive across 4 quadrants. Mild tympany to percussion. Soft. No guarding or rebound. PERIPHERAL VASCULAR: Peripheral pulses palpable. Normal perfusion, cap refill <2 seconds. NEURO: Follows commands. PSYCH: Stable, no paranoia or delusional thinking. Objective Data Vital Signs Vital Signs: Vital Signs - 24 hr 05/01/24 13:56 05/01/24 20:00 05/01/24 22:00 Temperature 36.5 C 36.6 C Pulse Rate 64 56 L Respiratory Rate 17 18 Blood Pressure 102/57 L 128/63 Pulse Oximetry 100 100 Oxygen Delivery Room Air 05/02/24 06:00 05/02/24 08:37 Temperature 36.6 C Pulse Rate 56 L 56 L Respiratory Rate 18 Blood Pressure 128/63 Pulse Oximetry 100 Oxygen Delivery Intake/Output Intake/Output: Intake & Output 04/29/24 04/30/24 05/01/24 05/02/24 23:59 23:59 23:59 23:59 Intake Total 50 3371.3 2110 1085.2 Output Total 1100 1500 800 Balance 50 2271.3 610 285.2 Meds/Results Medications: Active Medications Generic Name Dose Route Start Last Admin Trade Name Freq PRN Reason Stop Dose Admin Acetaminophen 650 mg 04/29/24 20:17 Acetaminophen 325 Mg Tablet PO Q4H PRN Mild Pain (1-3) or Fever Amlodipine Besylate 10 mg 04/30/24 12:45 05/02/24 08:38 Amlodipine Besylate 10 Mg Tablet PO 10 mg DAILY LORNA Administration Baclofen 10 mg 04/30/24 12:40 05/02/24 08:37 Baclofen 10 Mg Tablet PO 10 mg Q12HR LORNA Administration Benztropine Mesylate 1 mg 04/30/24 17:00 05/02/24 08:38 Benztropine Mesylate 1 Mg Tablet PO 1 mg BID LORNA Administration Ceftriaxone Sodium 1 gm in 50 mls @ 100 mls/hr 04/29/24 21:00 05/01/24 20:53 Rocephin 1 Gm/Ns 50 Ml IVPB Infused Q24H LORNA Infusion Sodium Chloride 1,000 mls @ 70 mls/hr 04/29/24 21:50 05/02/24 05:45 Normal Saline Iv IV CONT 70 mls/hr .[id number] LORNA Administration Loratadine 10 mg 04/30/24 09:00 05/02/24 08:38 Loratadine 10 Mg Tablet PO 10 mg Q24H LORNA Administration Losartan Potassium 50 mg 04/30/24 12:45 05/02/24 08:39 Losartan Potassium 50 Mg Tablet PO 50 mg DAILY LORNA Administration Mirtazapine 30 mg 04/30/24 21:00 05/01/24 20:23 Mirtazapine 30 Mg Tablet PO 30 mg HS LORNA Administration Ondansetron HCl 4 mg 04/29/24 20:17 04/30/24 04:52 Ondansetron Inj 4 Mg/2 Ml Vial IV PUSH 4 mg Q4H PRN Administration Nausea Pantoprazole Sodium 40 mg 04/30/24 09:00 05/02/24 08:39 Pantoprazole Sodium Iv 40 Mg Vial IV PUSH 40 mg QAM LORNA Administration Propranolol HCl 60 mg 04/30/24 09:00 05/02/24 08:37 Propranolol Hcl 60 Mg Capsule Cr PO 60 mg Q24H LORNA Administration Risperidone 2 mg 04/30/24 21:00 05/01/24 20:23 Risperidone 1 Mg Tablet PO 05/30/24 20:59 2 mg HS LORNA Administration Rivaroxaban 20 mg 04/30/24 17:00 05/01/24 17:37 Rivaroxaban 20 Mg Tablet PO 20 mg Q24H LORNA Administration Sertraline HCl 50 mg 04/30/24 12:45 05/02/24 08:37 Sertraline Hcl 50 Mg Tablet PO 50 mg DAILY LORNA Administration Trazodone HCl 50 mg 04/30/24 21:00 05/01/24 20:23 Trazodone Hcl 50 Mg Tablet PO 50 mg HS LORNA Administration Radiology Results: ITS Impressions Chest X-Ray 04/29/24 13:44 IMPRESSION: 1. Mild elevation the left hemidiaphragm and mild right apical pleural-parenchymal scarring. Head CT 04/29/24 18:23 IMPRESSION: No acute intracranial process. Abdomen/Pelvis CT 04/29/24 18:25 IMPRESSION: Small bilateral pleural effusions. Mild esophagitis/gastritis. Marked dilation of the second portion of the duodenum and mild gastric distention, presumably related to ileus from duodenitis. No obstructing mass or CT evidence of SMA syndrome. Mild ascites. Bladder wall thickening, may be secondary to chronic outlet obstruction or cystitis. Correlate with urinalysis. Moderate body wall edema.
[2024-05-02 14:00] VITALS: BP 104/67; PULSE 53; RESP 16; TEMP 36.3; O2SAT 100
[2024-05-02] MEDS: RIVAROXABAN 20 MG TABLET PO (16:59)
[2024-05-02] MEDS: traZODone HCL 50 MG TABLET PO (21:08)
[2024-05-02] MEDS: risperiDONE 1 MG TABLET 2 MG PO (21:08)
[2024-05-02] MEDS: MIRTAZAPINE 30 MG TABLET PO (21:08)
[2024-05-02 22:25] VITALS: BP 138/83; PULSE 66; RESP 20; TEMP 36.2; O2SAT 100
[2024-05-03 06:00] VITALS: BP 136/46; PULSE 57; RESP 20; TEMP 36.3; O2SAT 98
[2024-05-03 09:01] LABS: Basophils Absolute Auto 0.1 K/mm3 (0.0-0.1); Basophils Percent Auto 1.5 % (0.2-1.2); Eosinophils Absolute Auto 0.2 K/mm3 (0-0.3); Eosinophils Percent Auto 3.8 % (0-4.4); Hematocrit 32.5 % (42.0-52.0); Hemoglobin 10.6 g/dL (14.0-18.0); Immature Granulocyte Absolute 0.34 K/mm3 (0.00-0.031); Immature Granulocyte Percent A 6.4 % (0-0.5); Lymphocytes Absolute Auto 1.41 K/mm3 (0.9-3.2); Lymphocytes Percent Auto 26.7 % (18.3-44.2); Mean Corpuscular HGB Conc 32.6 g/dl (32-36); Mean Corpuscular Hemoglobin 28.6 pg (26-34); Mean Corpuscular Volume 87.6 fl (80-100); Mean Platelet Volume 10.1 fl (7.4-10.4); Monocytes Absolute Auto 0.5 K/mm3 (0.1-0.6); Monocytes Percent Auto 9.5 % (2.6-8.5); Neutrophils Absolute Auto 2.8 K/mm3 (1.3-6.7); Neutrophils Percent Auto 52.1 % (45.5-73.1); Platelet Count Result 206 k/mm3 (150-375); Red Blood Count 3.71 M/mm3 (4.6-6.20); White Blood Count 5.3 K/mm3 (4.5-10.0)
[2024-05-03 09:03] VITALS: PULSE 40
[2024-05-03] MEDS: LOSARTAN POTASSIUM 50 MG TABLET PO (09:04)
[2024-05-03] MEDS: BENZTROPINE MESYLATE 1 MG TABLET PO (09:04)
[2024-05-03] MEDS: BACLOFEN 10 MG TABLET PO (09:04)
[2024-05-03] MEDS: LORATADINE 10 MG TABLET PO (09:04)
[2024-05-03] MEDS: amLODIPine BESYLATE 10 MG TABLET PO (09:04)
[2024-05-03] MEDS: PANTOPRAZOLE 40 MG TABLET PO (09:04)
[2024-05-03] MEDS: SERTRALINE HCL 50 MG TABLET PO (09:04)
[2024-05-03 09:18] VITALS: BP 144/53; PULSE 40
[2024-05-03 09:49] LABS: Alanine Aminotransferase 23 U/L (6-50); Albumin Level 2.7 g/dL (3.5-5.1); Alkaline Phosphatase 53 U/L (38-126); Anion Gap 1 mmol/L (4-12); Aspartate Amino Transferase 18 U/L (17-59); Bilirubin,Total 0.3 mg/dL (0.2-1.3); Blood Urea Nitrogen 8 mg/dL (9-20); Carbon Dioxide 22 mmol/L (22-30); Chloride 112 mmol/L (98-107); Estimated CRCL calculation 85 ml/min; Estimated Glomerular Filt Rate > 60; Glucose 88 mg/dL (65-110); Potassium 3.6 mmol/L (3.4-5.0); Sodium 135 mmol/L (137-145)
--- NOTE | 2024-05-03 12:54 | P.DS_ITS ---
DS: Admitting Diagnosis Discharge Date 05/03/24 Admitting Diagnosis Urinary tract infection, dehydration, schizophrenia, gastritis DS: Discharge Diagnosis Discharge Diagnosis (1) Hypertension: Code(s): I10 - Essential (primary) hypertension Status: Chronic Assessment and Plan: 05/03/24: Chronic in nature -continuing all home medications. (2) Gastritis: Code(s): K29.70 - Gastritis, unspecified, without bleeding Status: Resolved Assessment and Plan: 05/03/24: Patient CT scan showed acute gastritis. He received IV Protonix and Zofran. He has been able to advance his diet without difficulty. No diarrhea has been noted. Patient is stable for discharge today from this standpoint. (3) Schizophrenia: Code(s): F20.9 - Schizophrenia, unspecified Status: Chronic Assessment and Plan: 05/03/24: Continue all home medications (4) Dehydration: Code(s): E86.0 - Dehydration Status: Resolved Assessment and Plan: 05/03/24: Resolved (5) UTI (urinary tract infection): Code(s): N39.0 - Urinary tract infection, site not specified Status: Resolved Assessment and Plan: 05/03/24: Patient has received 5 days of Rocephin. His culture has no growth in final. Blood cultures are also negative x2. He has no leukocytosis. Patient will be discharged home with no further antibiotics. DS: Summary Hospital Course Reason for hospitalization: Vomiting with gastritis and dehydration with concern for urinary tract infection. Hospital Course: This very pleasant 63-year-old male patient developmental delay and past medical history of schizophrenia and hypertension was admitted to the emergency room on 04/29/2024 after presenting to the emergency room with complaints of 3 days of vomiting. At that time it was told that patient was recently hospitalized at [facility] with a urinary tract infection and been taking oral antibiotics at home and was having some diarrhea and upset stomach. Urinalysis performed in the emergency room was initially concerning for possible UTI and he was started on Rocephin, admitted to the hospital for IV hydration as his labs appeared to show dehydration and CT scan also showed a mild esophagitis/gastritis. Throughout his admission he has had interval improvement. He had a swallow evaluation in which he passed without difficulty. He was able to increase his diet to regular without thickened liquids and he has no further vomiting. He has received 5 days of IV Rocephin for UTI but culture is negative. No further antibiotics will be needed at discharge. Patient stable at this time agreeable to discharge with normal vital signs and normal labs. All questions answered to their satisfaction prior to discharge in stable condition. Status at Discharge Cognitive/behavioral status at discharge: At baseline Functional status at discharge: uses cane/walker Overall status at discharge: patient is progressing back to baseline Time Spent with Patient Time attestation: Total time spent providing and/or coordinating discharge services: Time spent: Greater than 30 minutes Specific discharge activities: Follow-up Exam Const: General: comfortable and no acute distress Other: Male patient lying supine at this time in no acute distress. HENMT: Other: Head is atraumatic and normocephalic. ENT is without any obvious abnormalities. Eyes: General: appearance normal, both eyes and all related structures Neck: Neck: supple and no JVD Resp: Effort & Inspection: normal respiratory effort Auscultation: clear to auscultation bilaterally Cardio: Rate: regular rate Rhythm: regular rhythm Heart sounds: no gallops, no murmurs and no rubs GI: Inspection: non-distended GI Palp: Yes Soft to palpation, No Tenderness to palpation present (GI), No Guarding due to palpation present (GI) and No Hernia present Auscultation: normal bowel sounds Skin: General skin exam: normal color and no rashes or lesions noted Neuro: Motor exam (neuro): 5/5 motor strength present throughout and Normal motor muscle tone present throughout Other: At baseline Extrem: General: normal to inspection and no edema Psych: Mental Status: mental status grossly normal (Grossly normal for patient. He is at his baseline.) DS: Data Data Completed and Pending Completed studies during hospitalization: ITS Impressions Chest X-Ray 04/29/24 13:44 IMPRESSION: 1. Mild elevation the left hemidiaphragm and mild right apical pleural- parenchymal scarring. Head CT 04/29/24 18:23 IMPRESSION: No acute intracranial process. Abdomen/Pelvis CT 04/29/24 18:25 IMPRESSION: Small bilateral pleural effusions. Mild esophagitis/gastritis. Marked dilation of the second portion of the duodenum and mild gastric distention, presumably related to ileus from duodenitis. No obstructing mass or CT evidence of SMA syndrome. Mild ascites. Bladder wall thickening, may be secondary to chronic outlet obstruction or cystitis. Correlate with urinalysis. Moderate body wall edema. Labs on day of discharge: Labs from last 24 hours 05/03/24 08:55 WBC 5.3 RBC 3.71 L Hgb 10.6 L Hct 32.5 L MCV 87.6 MCH 28.6 MCHC 32.6 RDW 14.0 Plt Count 206 MPV 10.1 Immature Gran % (Auto) 6.4 H Neut % (Auto) 52.1 Lymph % (Auto) 26.7 [place] % (Auto) 9.5 H Eos % (Auto) 3.8 Baso % (Auto) 1.5 H Lymph # (Auto) 1.41 [place] # (Auto) 0.5 Eos # (Auto) 0.2 Baso # (Auto) 0.1 Abs Immat Gran (auto) 0.34 H Absolute Neuts (auto) 2.8 Absolute Nucleated RBC 0.000 Nucleated RBC % 0.0 Sodium 135 L Potassium 3.6 Chloride 112 H Carbon Dioxide 22 Anion Gap 1 L BUN 8 L Creatinine 0.70 Estim Creat Clear Calc 85 Estimated GFR > 60 Glucose 88 Calcium 8.0 L Total Bilirubin 0.3 AST 18 ALT 23 Alkaline Phosphatase 53 Total Protein 6.0 L Albumin 2.7 L Preliminary micro results at discharge 04/29/24 13:13 Blood Culture - Preliminary Blood 04/29/24 13:25 Blood Culture - Preliminary Blood Discharge Plan Discharge Attending physician on discharge: Lyndsay Saez Consulting providers: Blas Garcia Discharging Clinician: Lyndsay Saez Anticipated Discharge Date/Time: 05/03/24 13:01 Patient Disposition: Home, Self-Care Activity: as tolerated Diet: as tolerated Discharge Instructions: Thank you for allowing us to care for you during your hospitalization. Your overall hospitalization has been favorable. You have been able to increase your diet to normal and passed a swallow evaluation. In addition your urine culture is negative today after receiving 5 days of IV antibiotics. Therefore you will not need any additional antibiotics at home. You should return to home and take all medications as previously ordered without any changes. Please make an appointment to follow-up with her primary care provider. If at any point there are new or worsening symptoms not hesitate to return to emergency room. Patient Instructions: Rivaroxaban (By mouth), Diet for Stomach Ulcers and Gastritis (ED), Safe Use of Anticoagulants (DC) Patient Language: Honduran Stand Alone Forms: General Discharge Information Follow-up/Referrals: UNKNOWN,DOCTOR [Primary Care Provider] - (Make a follow-up appointment with your primary care provider soon as possible.) Discharge Medications: Continued benztropine 1 mg tablet 1 mg PO BID sertraline 50 mg tablet 50 mg PO DAILY losartan 50 mg tablet 50 mg PO DAILY trazodone 50 mg tablet 50 mg PO HS propranolol 60 mg capsule,extended release 24 hr 60 mg PO Q24H risperidone 2 mg tablet 2 mg PO HS baclofen 10 mg tablet 10 mg PO Q12H amlodipine 10 mg tablet 10 mg PO DAILY mirtazapine 30 mg tablet 30 mg PO HS loratadine 10 mg tablet 10 mg PO Q24H Xarelto 20 mg tablet 20 mg PO Q24H haloperidol decanoate 100 mg/mL solution 100 mg IM MONTHLY Date of admission: 04/30/24 07:51 Primary Care Provider: UNKNOWN,DOCTOR Admitting Provider: Kerri Murcia Attending physician on admission: Lyndsay Saez Condition: Improved Quality VTE Prophylaxis VTE prophylaxis: pharmacologic ordered Hospitalist MIPS Heart Failure (Exclusion) Patient has history of Heart Transplant or Left Ventricular Assistive Device?: No IF YES, STOP HERE Heart Failure (Qualifier) Patient has current or prior documentation of LVEF less than or equal to 40%, or mod/servere depressed LVSF?: No IF NO, STOP HERE
[2024-05-03 13:57] VITALS: BP 106/54; PULSE 75; RESP 18; TEMP 36.2; O2SAT 100
== END 2024-05-03 16:15 | disposition home or self-care (01) | DRG 690 ==
LOC: ANHED 13:29 → ANH3MED 21:04
PROVIDERS: Nurse Practitioner Family; Admitting Provider Family Medicine; Emergency Provider Emergency Medicine; PCP Physician Assistant; Visit Provider Nurse Practitioner Adult Health
DX: N39.0 Urinary tract infection, site not specified (principal); E86.0 Dehydration; F20.9 Schizophrenia, unspecified; I10 Essential (primary) hypertension; K29.70 Gastritis, unspecified, without bleeding; Z20.822 Contact with and (suspected) exposure to COVID-19; Z79.01 Long term (current) use of anticoagulants
CPT/HCPCS: 36415; 70450; 71045; 74177; 80048; 80053; 81001; 82948; 83605; 83735; 84484; 85025; 85027; 85055; 85610; 85730; 86140; 87040; 87086; 87637; 92610; 93005; 96365; 96375; 97110; 97161; 97165; 97530; 97535; 99285; A9270; G0378; J0696; J2405; J2470; J7030; Q9967